=== PATIENT | female | born 1950 | race Caucasian/White ===

== ENCOUNTER 2016-12-29 03:52 | Observation (INO) ==
--- NOTE | 2016-12-29 04:24 | Emergency Department Note ---
Disposition Clinical Impression: Epigastric abdominal pain, Elevated troponin Disposition: Admitted As Inpatient Condition: Good Time of Disposition: 05:14 Abdominal Pain HPI - General Chief Complaint: ED Abdominal Pain Stated Complaint: Abd Pain Source: EMS Mode of arrival: ambulatory Limitations: no limitations Nursing Notes Reviewed: Yes Vital Signs Reviewed: Yes - History of Present Illness HPI Narrative: 66-year-old female presents with concerns of epigastric pain started 3 hours prior to arrival. Patient is a poor historian and cannot give an adequate history regarding her symptoms however she does describe feeling nauseated with this pain. Denies similar pain in the past. She does state that she had a history of coronary artery disease with a heart attack in the past. Patient denies diaphoresis, shortness of breath, palpitations today. Pain Scale: 7 - Related Data Allergies Allergy/AdvReac Type Severity Reaction Status Date / Time No Known Allergies Allergy Verified 12/29/16 04:06 All systems ED: reviewed and negative except as stated. Constitutional: Denies: fever, chills, weakness Cardiovascular: Denies: chest pain, palpitations Respiratory: Denies: cough, dyspnea, wheezes Gastrointestinal: Reports: abdominal pain, nausea. Denies: vomiting, diarrhea Genitourinary: Denies: urgency, dysuria Musculoskeletal: Denies: back pain, neck pain Integumentary: Denies: rash, abrasion Neurological: Denies: headache, weakness Abdominal Pain PMH - Past Medical History Medical history: Reports: CHF, coronary artery disease, CVA, diabetes, GERD, hyperlipidemia, hypertension, myocardial infarction, renal disease, thyroid disease, other Female Surgical History: Reports: other - Social History Smoking status: Never smoker Alcohol use: Reports: none Drug use: Reports: none Physical Exam General: Alert and in no acute distress Skin: Warm, dry, intact Head: Normocephalic and atraumatic Neck: Supple, trachea midline and no tenderness Cardiovascular: RRR, no murmur, normal perfusion Respiratory: CTAB, no wheezing, cough, or respiratory distress Musculoskeletal: Normal strength, no tenderness, swelling or deformity GI: Soft, tender to palpation in the epigastrium without evidence of rigidity, guarding, or rebound. nondistended. Bowel sounds present Neuro: A&O to person, place, time and situation. No focal deficits noted on exam Psychiatric: cooperative and appropriate mood and affect. - General Limitations: no limitations General appearance: alert, in no apparent distress Course Vital Signs Temperature 97.9 F 12/29/16 03:54 Pulse Rate 94 12/29/16 03:54 Respiratory Rate 18 12/29/16 03:54 Blood Pressure 174/71 12/29/16 03:54 O2 Sat by Pulse Oximetry 94 L 12/29/16 03:54 Temperature 97.9 F 12/29/16 03:54 Pulse Rate 88 12/29/16 05:12 Respiratory Rate 18 12/29/16 06:00 Blood Pressure 170/101 12/29/16 06:00 O2 Sat by Pulse Oximetry 99 12/29/16 05:12 Oxygen Delivery Oxygen Delivery Nasal Cannula Abdominal Pain - Medical Records Medical records reviewed: Yes I reviewed the patient's medical records. - Lab Data Lab results reviewed: Yes I reviewed the patient's lab results. Result diagrams: 12/29/16 04:32 12/29/16 04:32 Lab Results 12/29/16 12/29/16 12/29/16 Range/Units 04:32 04:32 04:32 WBC 7.4 (4.3-11.1) K/mcL RBC 3.70 L (3.82-4.97) M/mcL Hgb 10.7 L (11.5-15.4) g/dL Hct 34.4 L (35.3-44.9) % MCV 93.0 (83.0-100.0) fL MCH 28.9 (28.0-33.3) pg MCHC 31.1 L (31.6-35.5) g/dL RDW 15.4 H (11.5-14.5) % Plt Count 182 (140-400) K/mcL MPV 9.3 L (9.4-12.4) fL Immature Gran % 0.7 (0-4) % Seg Neutrophils % 83.7 % Lymphocytes % 8.4 % Monocytes % 5.5 % Eosinophils % 1.2 % Basophils % 0.5 % Neutrophils # 6.2 (1.6-8.9) K/mcL Lymphocytes # 0.6 (0.6-4.6) K/mcL Monocytes # 0.4 (0.0-1.3) K/mcL Eosinophils # 0.1 (0.0-0.6) K/mcL Basophils # 0.0 (0.0-0.2) K/mcL PT 12.1 (9.4-12.1) Seconds INR 1.1 APTT 31.7 (26.0-36.0) Seconds Sodium 136 (136-145) mEq/L Potassium 4.7 H (3.5-4.5) mEq/L Chloride 101 (98-109) mEq/L Carbon Dioxide 25 (19-29) mEq/L BUN 31 H (7-20) mg/dL Creatinine 1.50 H (0.57-1.11) mg/dL Est GFR ( Amer) 42 L (> 60) Est GFR (Non-Af Amer) 35 L (> 60) BUN/Creatinine Ratio 21 (6-26) Glucose 403 H (70-99) mg/dL Calculated Osmolality 305 H (280-300) Lactic Acid (0.5-2.2) mmol/L Calcium 8.6 (8.6-10.8) mg/dL Total Bilirubin 1.9 H (0.2-1.2) mg/dL Direct Bilirubin 0.9 H (0.0-0.5) mg/dL Indirect Bilirubin 1.0 (0.0-1.2) mg/dL AST 168 H (5-34) Units/L ALT 101 H (0-55) Units/L Alkaline Phosphatase 196 H (38-126) Units/L Troponin I (0-0.03) ng/mL Serum Total Protein 7.6 (6.0-8.3) g/dL Albumin 3.1 L (3.5-5.0) g/dL Globulin 4.5 H (2.4-3.5) g/dL Albumin/Globulin Ratio 0.7 L (1.1-2.2) Amylase 21 L (25-125) Units/L Lipase 24 (8-78) Units/L 12/29/16 12/29/16 Range/Units 04:32 04:32 WBC (4.3-11.1) K/mcL RBC (3.82-4.97) M/mcL Hgb (11.5-15.4) g/dL Hct (35.3-44.9) % MCV (83.0-100.0) fL MCH (28.0-33.3) pg MCHC (31.6-35.5) g/dL RDW (11.5-14.5) % Plt Count (140-400) K/mcL MPV (9.4-12.4) fL Immature Gran % (0-4) % Seg Neutrophils % % Lymphocytes % % Monocytes % % Eosinophils % % Basophils % % Neutrophils # (1.6-8.9) K/mcL Lymphocytes # (0.6-4.6) K/mcL Monocytes # (0.0-1.3) K/mcL Eosinophils # (0.0-0.6) K/mcL Basophils # (0.0-0.2) K/mcL PT (9.4-12.1) Seconds INR APTT (26.0-36.0) Seconds Sodium (136-145) mEq/L Potassium (3.5-4.5) mEq/L Chloride (98-109) mEq/L Carbon Dioxide (19-29) mEq/L BUN (7-20) mg/dL Creatinine (0.57-1.11) mg/dL Est GFR ( Amer) (> 60) Est GFR (Non-Af Amer) (> 60) BUN/Creatinine Ratio (6-26) Glucose (70-99) mg/dL Calculated Osmolality (280-300) Lactic Acid 2.1 (0.5-2.2) mmol/L Calcium (8.6-10.8) mg/dL Total Bilirubin (0.2-1.2) mg/dL Direct Bilirubin (0.0-0.5) mg/dL Indirect Bilirubin (0.0-1.2) mg/dL AST (5-34) Units/L ALT (0-55) Units/L Alkaline Phosphatase (38-126) Units/L Troponin I 0.05 H* (0-0.03) ng/mL Serum Total Protein (6.0-8.3) g/dL Albumin (3.5-5.0) g/dL Globulin (2.4-3.5) g/dL Albumin/Globulin Ratio (1.1-2.2) Amylase (25-125) Units/L Lipase (8-78) Units/L - Radiology Data Radiology results reviewed: Yes I reviewed the patient's radiology results. - EKG Data EKG attestation: Yes I reviewed and interpreted this EKG.
[2016-12-29 04:36] LABS: Basophils % 0.5 %; Eosinophils # 0.1 K/mcL (0.0-0.6); Eosinophils % 1.2 %; Hematocrit 34.4 % (35.3-44.9); Hemoglobin 10.7 g/dL (11.5-15.4); Immature Granulocytes % 0.7 % (0-4); Lymphocytes # 0.6 K/mcL (0.6-4.6); Lymphocytes % 8.4 %; Mean Corpuscular HGB Conc 31.1 g/dL (31.6-35.5); Mean Corpuscular Hemoglobin 28.9 pg (28.0-33.3); Mean Platelet Volume 9.3 fL (9.4-12.4); Monocytes # 0.4 K/mcL (0.0-1.3); Monocytes % 5.5 %; Neutrophils # 6.2 K/mcL (1.6-8.9); Platelet Count 182 K/mcL (140-400); Red Cell Distribution Width 15.4 % (11.5-14.5); Segmented Neutrophils % 83.7 %
[2016-12-29 04:40] LABS: INR 1.1; Prothrombin Time 12.1 Seconds (9.4-12.1)
[2016-12-29 04:43] LABS: Activated Partial Thrombo Time 31.7 Seconds (26.0-36.0)
[2016-12-29 04:51] LABS: Albumin 3.1 g/dL (3.5-5.0); Albumin/Globulin Ratio 0.7 (1.1-2.2); Bilirubin,Direct 0.9 mg/dL (0.0-0.5); Bilirubin,Total 1.9 mg/dL (0.2-1.2); Calcium 8.6 mg/dL (8.6-10.8); Globulin 4.5 g/dL (2.4-3.5); Potassium 4.7 mEq/L (3.5-4.5); Total Protein 7.6 g/dL (6.0-8.3)
[2016-12-29] MEDS ORDERED: Aspirin 81 MG TAB.CHEW PO ONE (05:29)
[2016-12-29] MEDS ORDERED: Acetaminophen 325 MG TABLET PO PRN (08:41)
[2016-12-29] MEDS ORDERED: *HR* Morphine 2 MG/ML SYRINGE IVP PRN (08:41)
[2016-12-29] MEDS ORDERED: *HR* OxyCODONE Immed Rel 5 MG TABLET PO PRN (08:41)
[2016-12-29] MEDS ORDERED: Naloxone 0.4 MG/ML INJ IVP PRN (08:41)
[2016-12-29] MEDS ORDERED: Ondansetron 4 MG/2 ML VIAL IVP PRN (08:41)
[2016-12-29] MEDS ORDERED: D5% in Water 1,000 ML IV PRN (08:44)
[2016-12-29] MEDS ORDERED: *HR* Dextrose 50 % in Water (Syg) 50 ML SYRINGE IVP PRN (08:44)
[2016-12-29] MEDS ORDERED: Dextrose Gel 15 GM PO PRN ×2 (08:44)
[2016-12-29] MEDS ORDERED: 0.9 % Sodium Chloride 1,000 ML IVC SCH (08:45)
[2016-12-29 09:20] LABS: Hemoglobin A1C 8.9 %
[2016-12-29] MEDS: Insulin LISPRO 300 UNITS/3 ML VIAL SQ SCH ×2 (11:05→17:02)
--- NOTE | 2016-12-29 12:55 | Cardiology Consult Note ---
Date of Encounter: 12/29/16 Time of Encounter: 12:53 Assessment and Plan (1) Elevated troponin Current Visit: Yes Status: Acute Troponin flat and mildly elevated, 0.05, 0.07, unclear significance. This is in the setting of CKD, creatinine 1.50, HTN with BP 170s systolic on presentation. Nondiagnostic for ACS. Pt denies chest pain, admits to epigastric pain prior to being admitted, but currently pain free. Elevated liver enzymes and alk phos. BNP elevated 1095. Poor historian, so many details not available. Recommend checking echo to evaluate structure and function. Further recommendations following echo results. (2) Epigastric abdominal pain Current Visit: Yes Status: Acute Reportedly started hours prior to admission, but then pt states started 2 days ago--unclear. Elevated liver enzymes and alk phos. Management/testing per primary team. (3) CAD (coronary artery disease) Current Visit: Yes Status: Chronic Pt unable to deny or confirm CAD hx, but per RN, daughter was here last night and reports pt has hx of CAD and PCI--unclear on details or most recent cardiac work-up. Pt denies chest pain. Start ASA and BB. Will not start statin at this time given elevated liver enzymes. Qualifiers: Coronary Disease-Associated Artery/Lesion type: [place] artery [place] vs. transplanted heart: [place] heart Associated angina: without angina Qualified Code(s): I25.10 - Atherosclerotic heart disease of [place] coronary artery without angina pectoris (4) Essential hypertension Current Visit: Yes Status: Chronic Start BB. Adjust as necessary for optimal BP control. Discussion w patient/family: The assessment and plan as outlined above was discussed with the patient and/or family members who expressed understanding and agreement. All questions were answered. Thank you for involving us in the care of your patient. Please call with any questions. I will discuss all the above with Dr. Cruz and make changes as necessary. History of Present Illness Consult date: 12/29/16 Requesting physician: Justin Allen Consult reason: elevated troponin Chief complaint: epigastric pain History of present illness: Ms. Salazar is a 66 year old female that reportedly presented with epigastric pain that started 3 hours prior to arrival. Patient is a very poor historian and cannot give an adequate history regarding her symptoms. Per RN, daughter who is POA was in last night and reports pt has hx of CVA, DM, HTN, HLD, hx of CAD and PCI. Pt denies chest pain or dyspnea and is pain free currently. Troponins 0.07, 0.05 and cardiology was consulted. BNP 1095, Alk phos 196, AST 168, ALT 101, Creatinine 1.50. Past Med Surg Social Fam HX - Past Medical History Medical history: CHF, coronary artery disease, CVA, diabetes, GERD, hyperlipidemia, hypertension, myocardial infarction, renal disease, thyroid disease, other Psychiatric history: anxiety, depression - Social History Smoking Status: Never smoker Smokeless Tobacco Status: No Alcohol use: none Drug use: none Medications and Allergies Allergies No Known Allergies Allergy (Verified 12/29/16 04:06) All Systems Review: A 10-system review of systems was performed and is negative for pertinent findings except as documented above in the HPI. - Gastrointestinal Gastrointestinal: abdominal pain Physical Examination Vital Signs, Last 4 Hours Temp Pulse Resp BP Pulse Ox 12/29/16 10:48 97.6 F 62 17 154/54 90 L Vital Signs Temp Pulse Resp BP Pulse Ox 12/29/16 10:48 97.6 F 62 17 154/54 90 L 12/29/16 06:50 98.9 F 76 20 142/75 90 L 12/29/16 06:00 18 170/101 12/29/16 05:12 88 18 164/82 99 12/29/16 04:32 18 99 12/29/16 03:54 97.9 F 94 18 174/71 94 L Intake and Output 12/28/16 12/29/16 12/29/16 23:59 07:59 15:59 Other: Meal NPO Stool Characteristics Normal for Patient Weight 111.13 kg Blood Glucose* 391 393 Patient Weight 12/29/16 23:59 Weight 111.13 kg General: Conversant, No Apparent Distress HEENT: Atraumatic, Normocephaly, Mucus Membranes Moist Neck: No JVD, Normal carotid pulses Cardiac: Reg Rate and Rhythm, Normal S1 and S2, No Murmur Lungs: Normal Breath Sounds, No Wheeze, Rales, Rhonchi Neuro: No focal deficits noted, Other (confused, alert and oriented to person) Abdomen: Soft, Non-Tender Skin: No rashes noted on visualized skin Musculoskeletal: No Chest Wall Tenderness Extremities: No Clubbing, No Cyanosis, No Edema, Normal Pulses Results 12/29/16 04:32 12/29/16 04:32 Lab Results 12/29/16 12/29/16 08:59 08:59 Troponin I 0.07 H* B-Natriuretic Peptide 1095 H Short CBC 12/29/16 Range/Units 04:32 WBC 7.4 (4.3-11.1) K/mcL Hgb 10.7 L (11.5-15.4) g/dL Hct 34.4 L (35.3-44.9) % Plt Count 182 (140-400) K/mcL Neutrophils # 6.2 (1.6-8.9) K/mcL BMP 12/29/16 Range/Units 04:32 Sodium 136 (136-145) mEq/L Potassium 4.7 H (3.5-4.5) mEq/L Chloride 101 (98-109) mEq/L Carbon Dioxide 25 (19-29) mEq/L BUN 31 H (7-20) mg/dL Creatinine 1.50 H (0.57-1.11) mg/dL Glucose 403 H (70-99) mg/dL Calcium 8.6 (8.6-10.8) mg/dL Cardiac Enzymes 12/29/16 12/29/16 Range/Units 08:59 04:32 Troponin I 0.07 H* 0.05 H* (0-0.03) ng/mL Liver Function 12/29/16 Range/Units 04:32 Total Bilirubin 1.9 H (0.2-1.2) mg/dL Direct Bilirubin 0.9 H (0.0-0.5) mg/dL AST 168 H (5-34) Units/L ALT 101 H (0-55) Units/L Alkaline Phosphatase 196 H (38-126) Units/L Albumin 3.1 L (3.5-5.0) g/dL Active Medications Acetaminophen (Tylenol) 650 mg PO Q6HR PRN PRN Reason: Mild Pain (1-3) Stop: 06/30/17 08:42 Dextrose/Water (Dextrose 50% (Syg)) 25 ml IVP AD PRN PRN Reason: Hypoglycemia Stop: 06/30/17 08:45 Glucagon (Glucagen) 1 mg IM ONCE PRN PRN Reason: Hypoglycemia Stop: 06/30/17 08:45 Glucose (Gluctose) 15 gm PO ONCE PRN PRN Reason: Hypoglycemia Stop: 06/30/17 08:45 Glucose (Gluctose) 30 gm PO ONCE PRN PRN Reason: Hypoglycemia Stop: 06/30/17 08:45 Sodium Chloride (0.9 % Sodium Chloride) 1,000 mls @ 100 mls/hr IVC .Q10H BUDDY Stop: 12/29/16 18:44 Last Admin: 12/29/16 09:44 Dose: 100 mls/hr Dextrose (Dextrose 5%) 1,000 mls @ 100 mls/hr IV CONT PRN PRN Reason: HYPOGLYCEMIA Stop: 06/30/17 08:45 Insulin Detemir (Levemir) 15 unit SQ HS BUDDY Stop: 06/30/17 21:01 Insulin Human Lispro (Humalog) 0 units SQ TIDAC BUDDY PRN Reason: Protocol Stop: 06/30/17 11:31 Last Admin: 12/29/16 11:05 Dose: 14 units Insulin Human Lispro (Humalog) 0 units SQ HS BUDDY PRN Reason: Protocol Stop: 06/30/17 21:01 Morphine Sulfate (Morphine Sulfate) 2 mg IVP Q4HR PRN PRN Reason: Severe Pain (7-10) Stop: 06/30/17 08:42 Naloxone HCl (Narcan) 0.4 mg IVP Q2MIN PRN PRN Reason: Opioid Reversal Stop: 06/30/17 08:42 Ondansetron HCl (Zofran) 4 mg IVP Q8HR PRN PRN Reason: Nausea And Vomiting Stop: 06/30/17 08:42 Oxycodone HCl (Roxicodone) 5 mg PO Q6HR PRN PRN Reason: Moderate Pain (4-6) Stop: 06/30/17 08:42 - EKG Interpretation EKG results cardiology: personally reviewed (SR, prior anterior CO), other (12 hour tele AVG HR 79, no significant pauses or arrhythmias, SR.) Consult Discharge Plan - Plan Referrals: Tye Galarza MD [Primary Care Provider] -
[2016-12-29] MEDS: ALPRAZolam 0.5 MG TABLET PO PRN (15:17)
--- NOTE | 2016-12-29 18:07 | Electrocardiograph Report ---
[address] [place] [address] Test Date: 2016-12-29 Pat Name: Brenda Salazar Department: 104 Room: 3B Gender: F Programming Director: : 1950 Requested By: John Paul Michael Order Number: [id number] Reading MD: Hattie Parmar Measurements Intervals Hector Rate: 88 P: 33 AK: 185 QRS: 20 QRSD: 95 T: 66 QT: 378 QTc: 423 Interpretive Statements SINUS RHYTHM POSSIBLE ANTERIOR MYOCARDIAL INFARCTION, OF INDETERMINATE AGE Electronically Signed On 12-29-2016 18:05:10 EST by Hattie Parmar
[2016-12-29] MEDS ORDERED: Perflutren Lipid Microsphere 1.3 ML in 0.9 % Sodium Chloride 8.7 ML IVP ONE (20:59)
[2016-12-29] MEDS ORDERED: Insulin LISPRO 300 UNITS/3 ML VIAL SQ SCH (21:00)
[2016-12-29] MEDS ORDERED: Insulin DETEMIR 100 UNIT/ML X5UNITS SQ SCH (21:00)
--- NOTE | 2016-12-29 21:17 | Internal Med History&Physical ---
Date of Encounter: 12/29/16 Time of Encounter: 10:00 Assessment and Plan (1) Type 2 diabetes mellitus treated with insulin Current visit: Yes Status: Acute Insulin sliding scale. Diabetic diet. (2) DVT prophylaxis Current visit: Yes Status: Acute Encourage early ambulation. She does not require pharmacological prophylaxis. (3) Elevated troponin Current visit: Yes Status: Acute Trend troponin. Consult cardiology. Obtain echocardiogram. (4) Epigastric abdominal pain Current visit: Yes Status: Acute Could be atypical angina. We will monitor the patient on telemetry. Trend cardiac enzymes. Obtain EKG if the pain recurs. The source of pain could also be gastrointestinal, consider increasing the dose of PPI. (5) CAD (coronary artery disease) Current visit: Yes Status: Chronic Continue with aspirin and metoprolol and Imdur. Qualifiers: Coronary Disease-Associated Artery/Lesion type: [place] artery [place] vs. transplanted heart: [place] heart Associated angina: without angina Qualified Code(s): I25.10 - Atherosclerotic heart disease of [place] coronary artery without angina pectoris (6) Essential hypertension Current visit: Yes Status: Chronic Continue oral antihypertensive medication regimen. Internal Medicine - H&P: HPI Chief complaint: Epigastric abdominal pain Admitted From: Emergency Dept Plans for Post Hospital Care: Home History of present illness: Ms. Salazar is a 66 year old female with past medical history significant for hypertension, diabetes, hyperlipidemia, morbid obesity, and glaucoma who presented to the hospital for severe sudden onset epigastric pain which started yesterday while she was sitting in a recliner watching TV. The pain started at rest had no aggravating or alleviating factors. Pain lasted for 90 minutes. She denies any associated chest pain or associated nausea diaphoresis shortness of breath. Pain was subsequently relieved on its own. She presented to the hospital and an initial workup revealed mild troponin elevation. She was admitted for further care. Family history was negative for premature coronary artery disease in both parents. Patient's mother suffered with UT at old age. Social history she denies tobacco alcohol or drug use. She lives with her daughter. Past Med Surg Social Fam HX - Past Medical History Medical history: CHF, coronary artery disease, CVA, diabetes, GERD, hyperlipidemia, hypertension, myocardial infarction, renal disease, thyroid disease, other Psychiatric history: anxiety, depression - Social History Smoking Status: Never smoker Smokeless Tobacco Status: No Alcohol use: none Drug use: none Internal Medicine - H&P: Meds Acetaminophen [Tylenol] 650 mg PO QAM 12/29/16 [History] Alprazolam [Xanax 0.5 MG Tablet] 0.5 mg PO BID 12/29/16 [History] Aspirin [Lo-Dose Aspirin EC] 81 mg PO DAILY 12/29/16 [History] Atorvastatin Calcium [Lipitor] 80 mg PO DAILY 12/29/16 [History] Brimonidine 0.2% [Alphagan] 1 drop LEFT EYE TID 12/29/16 [History] Cholecalciferol (D-3) [Vitamin D] 1,000 unit PO DAILY 12/29/16 [History] Clopidogrel [Plavix] 75 mg PO DAILY 12/29/16 [History] Dorzolamide [Trusopt] 1 drop LEFT EYE TID 12/29/16 [History] Furosemide [Lasix] 40 mg PO DAILY 12/29/16 [History] Insulin ASPART [NovoLOG] 20 unit SQ TIDWM 12/29/16 [History] Insulin Glargine,Hum.rec.anlog [Lantus Solostar] 40 unit SQ BID 12/29/16 [ History] Isosorbide MONOnitrate (24 HR) [Imdur] 30 mg PO DAILY 12/29/16 [History] Latanoprost [Xalatan] 1 drop LEFT EYE HS 12/29/16 [History] Levothyroxine [Synthroid] 88 mcg PO DAILY 12/29/16 [History] Lisinopril [Zestril] 10 mg PO DAILY 12/29/16 [History] Metoprolol XL (24 HR) Succ [Toprol XL] 50 mg PO DAILY 12/29/16 [History] Miconazole 2% cream [Remedy Antifungal] 1 appl TP AD 12/29/16 [History] Multivitamin [One Daily Essential] 1 tab PO DAILY 12/29/16 [History] Pantoprazole Sodium [Protonix] 40 mg PO DAILY 12/29/16 [History] Pilocarpine 1% OPTH [Isopto Carpine] 1 drop LEFT EYE QID 12/29/16 [History] Sertraline [Zoloft] 50 mg PO DAILY 12/29/16 [History] Timolol Maleate 0.25% [Timolol Maleate 0.25%] 1 drop LEFT EYE BID 12/29/16 [ History] Allergies No Known Allergies Allergy (Verified 12/29/16 04:06) All Systems PM: A 10-system review of systems was performed and is negative for pertinent findings except as documented above in the HPI. - Constitutional Vitals: Temp Pulse Resp BP Pulse Ox 97.4 F L 75 17 137/77 95 12/29/16 19:15 12/29/16 19:15 12/29/16 19:15 12/29/16 19:15 12/29/16 19:15 General appearance: Present: A&O X 3 - Eye Eye exam: Present: PERRL, conjuntiva pink, sclera anicteric Pupils: Present: PERRL - Respiratory Respiratory exam: Present: CTAB. Absent: accessory muscle use, rales, rhonchi, wheezes - Cardiovascular Cardiovascular exam: Present: RRR, +S1, +S2. Absent: diastolic murmur, gallop, rubs, systolic murmur - GI/Abdominal GI/Abdominal exam: Present: normal bowel sounds, soft, no peritoneal signs. Absent: distended, tenderness - Extremities Exam Extremities exam: Present: warm, radial pulses palpable and symetrical. Absent : calf tenderness, cyanotic, pedal edema - Neurological Exam Neurological exam: Present: CN II-XII intact, oriented X3, no focal deficits. Absent: pronater drift, facial droop, speech deficit - Skin Skin exam: Present: dry, intact Internal Med - H&P Results - Labs CBC & Chem 7: 12/30/16 04:06 12/30/16 04:06 Labs: Cardiac Enzymes 12/29/16 12/29/16 Range/Units 08:59 14:51 Troponin I 0.07 H* 0.12 H* (0-0.03) ng/mL - EKG Data -: EKG Interpreted by Myself EKG shows normal: sinus rhythm, QRS complexes, ST-T waves
[2016-12-29] MEDS ORDERED: Latanoprost 2.5 ML BOTTLE LEFT EYE SCH (21:30)
[2016-12-30] MEDS: OPTH LEFT EYE SCH ×4 (00:16→16:00)
[2016-12-30] MEDS: PILOCARPINE 1% LEFT EYE SCH ×4 (00:16→16:00)
[2016-12-30] MEDS: Dorzolamide OPTH 10 ML BOTTLE LEFT EYE SCH ×3 (00:19→16:00)
[2016-12-30] MEDS: ALPRAZolam 0.5 MG TABLET PO PRN (01:28)
[2016-12-30 05:16] LABS: Basophils % 0.5 %; Eosinophils # 0.1 K/mcL (0.0-0.6); Eosinophils % 2.1 %; Hematocrit 29.4 % (35.3-44.9); Hemoglobin 9.3 g/dL (11.5-15.4); Immature Granulocytes % 0.5 % (0-4); Lymphocytes # 1.4 K/mcL (0.6-4.6); Lymphocytes % 21.5 %; Mean Corpuscular HGB Conc 31.6 g/dL (31.6-35.5); Mean Corpuscular Hemoglobin 29.8 pg (28.0-33.3); Mean Corpuscular Volume 94.2 fL (83.0-100.0); Mean Platelet Volume 10.5 fL (9.4-12.4); Monocytes # 0.5 K/mcL (0.0-1.3); Monocytes % 7.8 %; Neutrophils # 4.5 K/mcL (1.6-8.9); Platelet Count 165 K/mcL (140-400); Red Blood Count 3.12 M/mcL (3.82-4.97); Red Cell Distribution Width 15.7 % (11.5-14.5); Segmented Neutrophils % 67.6 %
[2016-12-30 05:38] LABS: Potassium 4.2 mEq/L (3.5-4.5)
[2016-12-30] MEDS: Insulin LISPRO 300 UNITS/3 ML VIAL SQ SCH ×2 (08:03→12:22)
[2016-12-30] MEDS ORDERED: Isosorbide MONOnitrate (24 HR) 30 MG TAB.ER.24H PO SCH (09:00)
[2016-12-30] MEDS ORDERED: Aspirin 81 MG TAB.CHEW PO SCH (09:00)
[2016-12-30] MEDS ORDERED: Furosemide 40 MG TABLET PO SCH (09:00)
--- NOTE | 2016-12-30 09:00 | ECHO - Doppler Report ---
Echo with Imaging Enhancement Agent Name: Brenda Salazar Date of Study: 12/29/2016 Date: 1950 Ht: 65.0 in Medical Record#: [id number] Age: 66 Wt: 245.0 lb Gender: Female BSA: 2.16 Order #: [id number] Location: [facility] Room #: 3B49 Reading Physician: Bear Cruz DO, MICHELLE, KENDRA HALL Gel Coater: Marina Ibarra Ordering Physician: Lance Mayes CNP Primary Physician: Tye Galarza MD Indications: Elevated troponin Impressions: LVEF 50%. Mildly dilated left ventricle and low normal systolic function. Mild concentric left ventricular hypertrophy. Mild left ventricular diastolic dysfunction. Mildly dilated right ventricle with grossly normal appearing function. Severely dilated left atrium. Moderate MAC and moderately thickened mitral valve leaflets. Posterior mitral valve leaflet appears to be somewhat fixed in position. Mild mitral regurgitation. No significant mitral stenosis. Mean gradient 4 mmHg (HR 77 bpm). Mild pulmonary hypertension. Left Ventricular Wall Motion: Rest Echo Findings All wall segments showed normal motion. Findings: Study Quality * Technically sub-optimal due to body habitus. ECG Findings * Normal sinus rhythm. Left Ventricle * LVEF 50%. * Mildly dilated left ventricle and low normal systolic function. * Mild concentric left ventricular hypertrophy. * Mild left ventricular diastolic dysfunction. Right Ventricle * Mildly dilated right ventricle with grossly normal appearing function. Left Atrium * Severely dilated left atrium. Right Atrium * Mildly dilated right atrium. Interatrial Septum * Interatrial septum not well evaluated. Aortic Valve * Trileaflet aortic valve. * Mildly calcified aortic valve annulus. * No aortic regurgitation. * No aortic stenosis. Mitral Valve * Moderate MAC and moderately thickened mitral valve leaflets. * Posterior mitral valve leaflet appears to be somewhat fixed in position. * Moderate mitral annular calcification. * Mild mitral regurgitation. * No significant mitral stenosis. Mean gradient 4 mmHg (HR 77 bpm). Tricuspid Valve * Normal tricuspid valve structure and function. * Trace tricuspid regurgitation. * Mild pulmonary hypertension. Pulmonic Valve * Pulmonic valve not well visualized. Aorta * Normally sized aortic root. Pericardium * The pericardium appears normal. IVC * Normal IVC dimensions and inspiratory collapse. Pulmonary Artery * Normal visualized portions of the main pulmonary artery. History Hypertension Diabetes Hypercholesteremia Years 5 Packs 1 History of CAD/PTCA Myocardial Infarction Contrast: Definity 1.3 ml in 8.7 ml of saline 2 ml. Measurements: BP: 137/ 77 2D Normal Values RVIDd: 3.30 cm <2.7 cm IVSd: 1.30 cm 0.6 - 1.0 cm LVIDd: 5.90 cm 3.7 - 5.6 cm LVPWd: 1.30 cm 0.6 - 1.1 cm LVIDs: 3.30 cm 1.5 - 3.6 cm AO: 2.90 cm < 4.0 cm LA: 4.20 cm 2.0 - 4.0cm %FS: 36.50 cm >25 % LA volume: 107 Mitral Valve Peak Velocity 1.83 m/sec Mean Velocity:.86 m/sec Peak Grad:13.00 mmHg Mean Grad:4.00 mmHg Pressure Time:57.00 msec Valve Area:3.86 cm2 Peak E:1.49 m/sec Peak A:1.09 m/sec E/A Ratio:1.4 Peak E' Lat Abhijit:4.78 cm/s Peak E' Med Abhijit:5.65 cm/s E/E' Lat Ratio:31.2 E/E' Med Ratio:26.4 Tricuspid Valve TV Regurg Peak Grad: 36.00mmHg TV Regurg Peak Abhijit: 2.99m/sec Updated by Bear Cruz DO, FACAsim, KENDRA HALL on 12/30/2016 8:53:37 AM electronically signed on 12/30/2016 8:55:38 AM with status of Final Wall Motion Flores: 1=Normal, 2=Hypokinesis, 3=Akinesis, 4=Dyskinesis, 5=Aneurysmal, 6=Hyperkinetic, X=Not Visualized (Blank)=Missing
--- NOTE | 2016-12-30 10:17 | Discharge Summary ---
Date of Encounter: 12/30/16 Time of Encounter: 09:30 - Discharge Diagnosis (1) Elevated troponin Priority: Primary Status: Acute Comments: Flat, adynamic, likely related to CKD/ poorly controlled hypertension with left heart strain (2) Epigastric abdominal pain Priority: Primary Status: Acute Comments: in the setting of elevated liver enzyme., transient transamitis. Pain now resolved. Trend liver enzymes, hold Lipitor for now. CT abdomen showed probabble cirrhotic liver, hepatitis panel nonreactive , no gall stones. LFTs had trended down at discharge. Lipase normal. PCP MAY RESTART LIPITOR OF THE ACUTE PHASE. Repeat LFTs in 1 week. (3) Type 2 diabetes mellitus treated with insulin Priority: Secondary Status: Chronic (4) CAD (coronary artery disease) Priority: Secondary Status: Chronic Comments: stable. 2D ECHO is non acute Troponin elvated, but adynamic. Not suggestive of ACS. iMPROVE CONTROL OF HYPERTENSION BY INCREASING lISINOPRIL TO 20MG PO QD Add Amlodipine 5 mg po QD Hold Lipitor for now, PCP may reattempt re-initiation when it normalizes, but will have to monitor liver enzyme. Qualifiers: Coronary Disease-Associated Artery/Lesion type: [place] artery [place] vs. transplanted heart: [place] heart Associated angina: without angina Qualified Code(s): I25.10 - Atherosclerotic heart disease of [place] coronary artery without angina pectoris (5) Essential hypertension Priority: Secondary Status: Chronic Comments: Poorly controlled. iMPROVE CONTROL OF HYPERTENSION BY INCREASING lISINOPRIL TO 20MG PO QD Add Amlodipine 5 mg po QD (6) Transaminitis Priority: Primary Status: Acute Comments: Hold Lipitor for now, PCP may reattempt re-initiation when it normalizes, but will have to monitor liver enzyme. Hepatitis panel. Repeat LFTs in 1 week. (7) CKD (chronic kidney disease) stage 3, GFR 30-59 ml/min Priority: Secondary Status: Chronic Comments: STABLE, MONITOR. - Discharge Medications Prescriptions: Amlodipine [Norvasc] 5 mg PO DAILY 30 Days Lisinopril [Zestril] 20 mg PO DAILY 30 Days Home Medications: Acetaminophen [Tylenol] 650 mg PO QAM 12/29/16 [History] Alprazolam [Xanax 0.5 MG Tablet] 0.5 mg PO BID 12/29/16 [History] Aspirin [Lo-Dose Aspirin EC] 81 mg PO DAILY 03/10/17 [History] Brimonidine 0.2% [Alphagan] 1 drop LEFT EYE TID 12/29/16 [History] Cholecalciferol (D-3) [Vitamin D] 1,000 unit PO DAILY 12/29/16 [History] Clopidogrel [Plavix] 75 mg PO DAILY 12/29/16 [History] Dorzolamide [Trusopt] 1 drop LEFT EYE TID 12/29/16 [History] Furosemide [Lasix] 40 mg PO DAILY 12/29/16 [History] Insulin ASPART [NovoLOG] 20 unit SQ TIDWM 12/29/16 [History] Insulin Glargine,Hum.rec.anlog [Lantus Solostar] 40 unit SQ BID 12/29/16 [ History] Isosorbide MONOnitrate (24 HR) [Imdur] 30 mg PO DAILY 12/29/16 [History] Latanoprost [Xalatan] 1 drop LEFT EYE HS 12/29/16 [History] Levothyroxine [Synthroid] 88 mcg PO DAILY 12/29/16 [History] Metoprolol XL (24 HR) Succ [Toprol Xl] 50 mg PO DAILY 12/29/16 [History] Miconazole 2% cream [Remedy Antifungal] 1 appl TP AD 12/29/16 [History] Multivitamin [One Daily Essential] 1 tab PO DAILY 12/29/16 [History] Pantoprazole Sodium [Protonix] 40 mg PO DAILY 12/29/16 [History] Pilocarpine 1% OPTH [Isopto Carpine] 1 drop LEFT EYE QID 12/29/16 [History] Sertraline [Zoloft] 50 mg PO DAILY 12/29/16 [History] Timolol Maleate 0.25% 1 drop LEFT EYE BID 12/29/16 [History] Amlodipine [Norvasc] 5 mg PO DAILY 30 Days 12/30/16 [Rx] Lisinopril [Zestril] 20 mg PO DAILY 30 Days 12/30/16 [Rx] Allergies/Adverse Reactions: Allergies No Known Allergies Allergy (Verified 12/29/16 04:06) Procedures/tests Complete & Pending: Procedures Performed prior 72 hours Category Date Time Status EV echocardiogram w enhance Routine Y 12/29/16 13:05 Completed Date of admission: 12/29/16 05:42 Primary care physician: Tye Galarza MD Consults: 12/29/16 06:40 Consult to [facility] [CONS] Routine Reason for SW Consult: Pt. is from [facility]. Is she a bed hold? 12/29/16 11:42 Consult to Cardiology [CONS] Routine Comment: Consulting Provider: Cardiology Caitlyn Reason for Consult: Elevated troponin Call Completed: No Discharging clinician: Gerry Bowman Anticipated date of discharge: 12/30/16 - Patient Status Disposition: Home, Self-Care Condition: Good Overall status at discharge: patient is back to baseline - Discharge Instructions Follow Up With: Tye Galarza MD [Primary Care Provider] - Additional Instructions: Repeat LFTs in 1 week. May r einitiated Atorvastatin if LFTs normalize, but with close monitoring. - Diet and Activity Activity: resume usual activities as tolerated Diet: advance to your usual diet Interval History: No more abdominal pain. Hospital course: Ms. Salazar is a 66 year old female admitted with epigastric and chest pain as well as elevated liver enzymes. Tropon was elevated at admission, howerev serial roponin was adyanmic. 2D ECHO was non-acute, LVEF=65%, no wall motional anomaly. Elevated liver enzymes trended down. Cause of elevation remained unknown. Hepatitis panel was no-reactive. Lipitor was held temporarily. This may be reinitiated by her PCP if LFTs normalizes, but liver exnzymes have to be monitored. LFTs to be rechecked at PCP I1 WEEK. At discharge, abdominal and chest pain had resolved. She was tolerating regular diet without pain. - Time Spent with Patient Total time spent providing and/or coordinating discharge services: Greater than 30 minutes Specific discharge activities: As tolerated. - Constitutional Vitals: Temp Pulse Resp BP Pulse Ox 98.0 F 64 18 134/71 92 L 12/30/16 07:53 12/30/16 07:53 12/30/16 07:53 12/30/16 07:53 12/30/16 07:53 General appearance: Present: A&O X 3 Exam: Not in distress Not pale, ancteric, afebrile, acyanotic No JVD. Chest clear Heart: rrr, hs/1/2 Abdomen: soft, non-tender, no masses. RELIGION PROFESSOR: aao x 3, no gross focal neurological deficits. Extremities: no pedal edema, normal pedal pulses, no calf tenderness.
[2016-12-30 11:36] LABS: Albumin 2.8 g/dL (3.5-5.0); Albumin/Globulin Ratio 0.7 (1.1-2.2); Bilirubin,Direct 0.5 mg/dL (0.0-0.5); Bilirubin,Total 1.5 mg/dL (0.2-1.2); Globulin 3.9 g/dL (2.4-3.5); Total Protein 6.7 g/dL (6.0-8.3)
--- NOTE | 2016-12-30 11:54 | Cardiology Progress Note ---
Date of Encounter: 12/30/16 Time of Encounter: 11:30 Assessment and Plan (1) Elevated troponin Current Visit: Yes Status: Acute MIld troponin elevation in the setting of CKD/ HTN. Troponin 0.05, 0.07, 0.12, 0.10.Nondiagnostic for ACS. Pt denies chest pain, admits to epigastric pain prior to being admitted, but currently pain free. Elevated liver enzymes and alk phos. BNP elevated 1095. Very poor historian. TTE shows EF 50%, mild mitral regurgitation, mild MAC, and no mitral stenosis. No further cardiac testing recommended at this time and patient agrees. Cardiology will sign off. Out-pt f/u will be scheduled. (2) CAD (coronary artery disease) Current Visit: Yes Status: Chronic Reported history of CAD and previous PCI. Asa, statin, and bb recommended. Continue imdur. Qualifiers: Coronary Disease-Associated Artery/Lesion type: [place] artery [place] vs. transplanted heart: [place] heart Associated angina: without angina Qualified Code(s): I25.10 - Atherosclerotic heart disease of [place] coronary artery without angina pectoris Discussion w patient/family: The assessment and plan as outlined above was discussed with the patient and/or family members who expressed understanding and agreement. All questions were answered. Thank you for involving us in the care of your patient. Please call with any questions. Subjective Principal diagnosis: Elevated troponin Interval history: Denies chest pain or SOB. Patient is being discharged this afternoon. Objective Vital Signs, Last 4 Hours Temp Pulse Resp BP Pulse Ox 12/30/16 11:21 97.9 F 53 16 142/80 97 12/30/16 07:53 98.0 F 64 18 134/71 92 L General: Conversant, No Apparent Distress, Other (Morbidly obese female, very poor historian) HEENT: Atraumatic, Normocephaly, Mucus Membranes Moist Neck: No JVD, Normal carotid pulses Cardiac: Reg Rate and Rhythm, Normal S1 and S2, No Murmur Lungs: Normal Breath Sounds, No Wheeze, Rales, Rhonchi Neuro: Alert and responsive, No focal deficits noted Abdomen: Soft, Non-Tender Skin: No rashes noted on visualized skin Musculoskeletal: No Chest Wall Tenderness Extremities: No Clubbing, No Cyanosis, No Edema, Normal Pulses Results 12/30/16 04:06 12/30/16 04:06 Lab Results 12/29/16 12/30/16 12/30/16 14:51 04:06 04:06 WBC 6.6 Hgb 9.3 L Hct 29.4 L Plt Count 165 Sodium 135 L Potassium 4.2 Chloride 103 Carbon Dioxide 23 BUN 31 H Creatinine 1.36 H Glucose 212 H Calcium 8.0 L Total Bilirubin AST ALT Alkaline Phosphatase Troponin I 0.12 H* 12/30/16 12/30/16 08:52 11:07 WBC Hgb Hct Plt Count Sodium Potassium Chloride Carbon Dioxide BUN Creatinine Glucose Calcium Total Bilirubin 1.5 H AST 52 H ALT 59 H Alkaline Phosphatase 124 Troponin I 0.10 H* - Imaging and Cardiology Echo: report reviewed - EKG Interpretation EKG results cardiology: other (AVg HR over last 24 hours was 89 bpm. NSR. No ventricular arrythmias seen. No significant bradycardia.) Consult Discharge Plan - Plan Referrals: Tye Galarza MD [Primary Care Provider] - Prescriptions: Amlodipine [Norvasc] 5 mg PO DAILY 30 Days Lisinopril [Zestril] 20 mg PO DAILY 30 Days
[2016-12-30 11:58] LABS: Hepatitis B Surface Antigen Nonreactive (Nonreactive)
[2016-12-30 15:29] VITALS: BP 134/80
[2017-01-01 11:52] LABS: Hepatitis A Antibody IgM Nonreactive (Nonreactive); Hepatitis C Virus Antibody Nonreactive (Nonreactive)
[2017-01-01 12:25] LABS: Hepatitis B Core IgM Nonreactive (Nonreactive)
== END 2016-12-30 18:10 | disposition home or self-care (01) ==
LOC: EMEROO 03:52 → 3BNU 03:52
PROVIDERS: ADMIT Internal Medicine; ATTEND Nurse Practitioner Family